=== PATIENT | female | born 1980 | race African-American/Black ===

== ENCOUNTER 2016-07-31 11:49 | Observation (INO) | payer MEDICAID, OTHER ==
[2016-07-31] VITALS (7 sets, daily range): BP systolic 109–143; BP diastolic 8–82; PULSE 80–119; RESP 16–20; TEMP 98–98.2; O2SAT 95–100
[~2016-07-31] VITALS: Ht 167.6 cm; Wt 72.5 kg
--- NOTE | 2016-07-31 12:18 | PD ---
HPI Chief Complaint: Chest Pain Time Seen by Provider: 12:18 Travel History International Travel<30 days: No Contact w/Intl Traveler<30days: No Traveled to known affect area: No History of Present Illness HPI 35-year-old female presents to the emergency department for evaluation of chest pain that has been intermittent for the past 3 days. She states are sharp and pressure in her ears in her midsternal chest. She denies any radiation of pain to me. She states the last time she had it was yesterday morning and lasted approximately 5 minutes. She states it did resolve on their own. She states she was doing dishes when the chest pain occurred. She denies any history of cardiac problems. She does report a history type 2 diabetes and states that she was on insulin approximately 2 years ago, but has not taken in approximately 2 years due to lack of insurance. She states that she does not check her blood sugar. Patient denies any fevers or chills. No cough or congestion. No recent surgeries or travel. No leg edema. No hemoptysis. Patient denies any chest pain at this time. Patient does report a history of PA her mother and father. She states that her father had PA at a younger age, but is not sure how old he was. Patient denies any chance of . She states her last menstrual cycle was 2 weeks ago. PFSH Past Medical History ?: Not LMP: 07/19/16 Social History Alcohol Use: No Tobacco Use: No Substance Use: No Allergies-Medications (Allergen,Severity, Reaction): Coded Allergies: No Known Allergies (Unverified , 07/31/16) Reported Meds & Prescriptions Reported Meds & Active Scripts Active No Active Prescriptions or Reported Medications Review of Systems Except as stated in HPI: all other systems reviewed are Neg Physical Exam Narrative GENERAL: Well-nourished, well-developed female patient, ambulatory. Afebrile. SKIN: Focused skin assessment warm/dry. HEAD: Normocephalic. Atraumatic. EYES: No scleral icterus. No injection or drainage. NECK: Supple, trachea midline. No JVD or lymphadenopathy. CARDIOVASCULAR: Regular rate and rhythm without murmurs, gallops, or rubs. Bilateral radial and pedal pulses equal, 2+. RESPIRATORY: Breath sounds equal bilaterally. No accessory muscle use. Lungs sounds are clear to auscultation. GASTROINTESTINAL: Abdomen soft, non-tender, nondistended. MUSCULOSKELETAL: No cyanosis, or edema. No reproducible chest pain. BACK: Nontender without obvious deformity. No CVA tenderness. Data Data Last Documented VS Vital Signs Date Time Temp Pulse Resp B/P Pulse Ox O2 Delivery O2 Flow Rate FiO2 07/31/16 12:56 95 16 123/77 95 Room Air 07/31/16 11:51 98.2 Orders Electrocardiogram (07/31/16 ) Basic Metabolic Panel (Bmp) (07/31/16 12:17) Ckmb (Isoenzyme) Profile (07/31/16 12:17) Complete Blood Count With Diff (07/31/16 12:17) Magnesium (Mg) (07/31/16 12:17) Troponin I (07/31/16 12:17) Chest, Single Ap (07/31/16 12:17) Ecg Monitoring (07/31/16 12:17) Bilateral Bp Monitoring (07/31/16 12:17) Iv Access Insert/Monitor (07/31/16 12:17) Oximetry (07/31/16 12:17) Oxygen Administration (07/31/16 12:17) Aspirin Chew (Aspirin Chew) (07/31/16 12:30) Sodium Chloride 0.9% Flush (Ns Flush) (07/31/16 12:30) Sodium Chlor 0.9% 1000 Ml Inj (Ns 1000 M (07/31/16 13:45) Insulin Human Regular Inj (Novolin R Inj (07/31/16 13:45) Labs Laboratory Tests Test 07/31/16 12:50 White Blood Count 4.9 TH/MM3 Red Blood Count 4.24 MIL/MM3 Hemoglobin 12.4 GM/DL Hematocrit 37.5 % Mean Corpuscular Volume 88.5 FL Mean Corpuscular Hemoglobin 29.3 PG Mean Corpuscular Hemoglobin 33.1 % Concent Red Cell Distribution Width 15.3 % Platelet Count 259 TH/MM3 Mean Platelet Volume 9.3 FL Neutrophils (%) (Auto) 59.3 % Lymphocytes (%) (Auto) 32.1 % Monocytes (%) (Auto) 6.5 % Eosinophils (%) (Auto) 1.6 % Basophils (%) (Auto) 0.5 % Neutrophils # (Auto) 2.9 TH/MM3 Lymphocytes # (Auto) 1.6 TH/MM3 Monocytes # (Auto) 0.3 TH/MM3 Eosinophils # (Auto) 0.1 TH/MM3 Basophils # (Auto) 0.0 TH/MM3 CBC Comment DIFF FINAL Differential Comment Sodium Level 133 MEQ/L Potassium Level 4.3 MEQ/L Chloride Level 98 MEQ/L Carbon Dioxide Level 26.2 MEQ/L Anion Gap 9 MEQ/L Blood Urea Nitrogen 6 MG/DL Creatinine 0.81 MG/DL Estimat Glomerular Filtration 97 ML/MIN Rate Random Glucose 423 MG/DL Calcium Level 8.9 MG/DL Magnesium Level 2.1 MG/DL Total Creatine Kinase 75 U/L Troponin I LESS THAN 0.02 NG/ML MDM Medical Decision Making Medical Screen Exam Complete: Yes Emergency Medical Condition: Yes Medical Record Reviewed: Yes Interpretation(s) Last Impressions Chest X-Ray 07/31/16 1217 Signed Impressions: Service Date/Time: Tuesday, July 31, 2016 12:17 - CONCLUSION: No acute disease. Luis Antonio Jerry MD FACR Differential Diagnosis Chest wall pain versus pleurisy versus ACS Narrative Course 35-year-old female presents to the emergency department for evaluation of intermittent chest pain for 3 days. She is currently pain-free at this time. EKG, CBC, BMP, CK, troponin, magnesium are ordered and pending. Chest x-ray is ordered and pending. Patient is given ASA 162 mg PO. EKG shows sinus rhythm, heart rate 100, no acute ST changes. CBC is unremarkable. BMP shows critical elevated glucose of 423, anion gap is normal at 9, carbon dioxide is normal at 26.2, no evidence of DKA. CK is 75. Troponin is less than 0.02. Magnesium is 2.1. Chest x-ray shows no acute disease. Patient is given normal saline 1 L IV bolus and regular insulin 4 units IV. The patient will be admitted for 23 observation for chest pain, rule out PA. The patient agrees with this plan. [facility] is paged for admission. Dr. Buchanan accepted admission. 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
[2016-07-31] MEDS ORDERED: SODIUM CHLORIDE 0.9% FLUSH 10 ML FLUSH IVF PRN (12:30)
[2016-07-31] MEDS ORDERED: ASPIRIN 81 MG CHEW TAB PO ONE (12:30)
--- NOTE | 2016-07-31 12:51 | RADRPT ---
EXAM DATE/TIME: 07/31/2016 12:17 [facility] COMPARISON: No previous studies available for comparison. INDICATIONS : Chest pain. MEDICAL HISTORY : None. SURGICAL HISTORY : None. ENCOUNTER: Initial ACUITY: 1 day PAIN SCORE: 5/10 LOCATION: Bilateral chest FINDINGS: A single view of the chest demonstrates the lungs to be symmetrically aerated without evidence of mas s, infiltrate or effusion. The cardiomediastinal contours are unremarkable. Scoliosis, convex to th e right is noted. CONCLUSION: No acute disease. Luis Antonio Jerry MD FACR on July 31, 2016 at 12:49 Board Certified Radiologist. This report was verified electronically.
[2016-07-31 13:03] LABS: AUTOMATED NEUTROPHIL # 2.9 TH/MM3 (1.8-7.7); BASOPHIL % 0.5 % (0.0-2.0); EOSINOPHIL # 0.1 TH/MM3 (0-0.4); EOSINOPHIL % 1.6 % (0.0-4.0); HEMATOCRIT 37.5 % (35.0-46.0); HEMO FLAGS DIFF FINAL; LYMPH % 32.1 % (9.0-44.0); LYMPHOCYTE # 1.6 TH/MM3 (1.0-4.8); MEAN CELL VOLUME 88.5 FL (80.0-100.0); MEAN CORPUSCULAR HEMOGLOBIN 29.3 PG (27.0-34.0); MEAN CORPUSCULAR HGB CONC 33.1 % (32.0-36.0); MONO % 6.5 % (0.0-8.0); NEUT % 59.3 % (16.0-70.0); PLATELET COUNT 259 TH/MM3 (150-450); RED BLOOD COUNT 4.24 MIL/MM3 (4.00-5.30); RED CELL DISTRIBUTION WIDTH 15.3 % (11.6-17.2); WHITE BLOOD COUNT 4.9 TH/MM3 (4.0-11.0)
[2016-07-31 13:35] LABS: ANION GAP 9 MEQ/L (5-15); BICARBONATE 26.2 MEQ/L (21.0-32.0); BLOOD UREA NITROGEN 6 MG/DL (7-18); CHLORIDE 98 MEQ/L (98-107); GLOMERULAR FILTRATION RATE 97 ML/MIN (>89); MAGNESIUM 2.1 MG/DL (1.5-2.5); POTASSIUM 4.3 MEQ/L (3.5-5.1); SODIUM (NA) 133 MEQ/L (136-145)
[2016-07-31 13:40] LABS: CREATINE KINASE 75 U/L (26-192)
[2016-07-31] MEDS ORDERED: INSULIN HUMAN REGULAR 1,000 UNITS/10 ML VIAL IV PUSH ONE (13:45)
[2016-07-31] MEDS ORDERED: SODIUM CHLOR 0.9% 1000 ML INJ 1,000 ML IV ONE (13:45)
[2016-07-31] MEDS ORDERED: DEXTROSE 50% IN WATER 50 ML VIAL(D50) IV PUSH PRN (14:15)
[2016-07-31] MEDS ORDERED: GLUCAGON 1 MG/ML VIAL OTHER PRN (14:15)
[2016-07-31] MEDS ORDERED: ACETAMINOPHEN/HYDROcodone 325 MG/5 MG TAB PO PRN (14:30)
[2016-07-31] MEDS ORDERED: ACETAMINOPHEN 325 MG TAB PO PRN (14:30)
[2016-07-31] MEDS ORDERED: ONDANSETRON HCL 4 MG/2 ML VIAL IV PUSH PRN (14:30)
--- NOTE | 2016-07-31 14:31 | HHI.HP ---
[facility] No Primary Care Physician Admission Diagnosis chest pain, uncontrolled type 2 diabetes Diagnoses: (1) Chest pain Diagnosis: Principal (2) Diabetes mellitus Chief Complaint: chest pain Travel History International Travel<30 Days: No Contact w/Intl Traveler <30 Da: No Traveled to Known Affected Are: No History of Present Illness patient is a 35 y/o female with history of diabetes mellitus, previously was on insulin and not on any hypoglycemic agents since three years ago, who presented to ER with chest pain. pain is midsternal . she says that the pain started three days ago. she describes it as sharp and ' burning' type. had some jaw pain. pain is worse with exertion. pain was associated with some sob, dizziness and nausea. she was pain free at the time of evaluation. Review of Systems Constitutional: COMPLAINS OF: Dizziness, DENIES: Fever, Weight loss, Chills, Night Sweats Eyes: DENIES: Blurred vision, Diplopia, Vision loss, Double Vision Ears, nose, mouth, throat: DENIES: Tinnitus, Vertigo, Throat pain, Epistaxis Respiratory: COMPLAINS OF: Shortness of breath, DENIES: Apneas, Cough, Snoring , Wheezing, Hemoptysis, Sputum production Cardiovascular: COMPLAINS OF: Chest pain, DENIES: Palpitations, Syncope, Dyspnea on Exertion, PND, Lower Extremity Edema, Orthopnea, Claudication Gastrointestinal: COMPLAINS OF: Nausea, DENIES: Abdominal pain, Black stools, Bloody stools, Constipation, Vomiting, Difficulty Swallowing, Anorexia Genitourinary: DENIES: Urinary frequency, Urgency, Hematuria, Dysuria Musculoskeletal: DENIES: Joint pain, Muscle aches, Stiffness, Joint Swelling Integumentary: DENIES: Rash Neurologic: DENIES: Abnormal gait, Headache, Localized weakness, Paresthesias, Seizures, Speech Problems, Tremor, Poor Balance Psychiatric: DENIES: Anxiety, Confusion, Mood changes, Depression, Hallucinations, Agitation, Suicidal Ideation, Homicidal Ideation, Delusions Past Family Social History Past Medical History diabetes mellitus Reported Medications none - however was on insulin three years ago. Allergies: Coded Allergies: No Known Allergies (Unverified , 07/31/16) Active Ordered Medications Current Medications Aspirin (Aspirin Chew) 162 mg ONCE ONCE PO Last administered on 07/31/16 12:57 ; Start 07/31/16 at 12:30; Stop 07/31/16 at 12:31; Status DC Sodium Chloride 2 ml 2 ml UNSCH PRN IVF FLUSH AFTER USING IV ACCESS; Start 07/31 at 12:30 Sodium Chloride (NS 1000 ml Inj) 1,000 ml @ 999 mls/hr BOLUS ONCE IV Last administered on 07/31/16 13:52; Start 07/31/16 at 13:45; Stop 07/31/16 at 14:45 Insulin Human Regular (NovoLIN R INJ) 4 units ONCE ONCE IV PUSH Last administered on 07/31/16 13:53; Start 07/31/16 at 13:45; Stop 07/31/16 at 13:46; Status DC Dextrose (D50w (Vial) Inj) 25 ml UNSCH PRN IV PUSH HYPOGLYCEMIA-SEE COMMENTS; Start 07/31/16 at 14:15 Glucagon (Glucagon Inj) 1 mg UNSCH PRN OTHER HYPOGLYCEMIA-SEE COMMENTS; Start 07/31/16 at 14:15 Insulin Aspart 1 1 ACHS SLIDING SCALE SQ ; Start 07/31/16 at 16:00 Sodium Chloride (NS 1000 ml Inj) 1,000 ml @ 100 mls/hr Q10H IV ; Start 07/31/16 at 14:15 Family History heart attack in father at his 30's and in her mother at her 60's. Social History no smoking or drinking. Physical Exam Vital Signs Vital Signs Date Time Temp Pulse Resp B/P Pulse Ox O2 Delivery O2 Flow Rate FiO2 07/31/16 12:56 95 16 123/77 95 Room Air 07/31/16 12:52 20 95 Room Air 07/31/16 11:51 98.2 119 16 143/82 99 Physical Exam GENERAL: This is a well-nourished, well-developed patient, in no apparent distress. SKIN: No rashes, ecchymoses or lesions. Cool and dry. HEAD: Atraumatic. Normocephalic. No temporal or scalp tenderness. EYES: Pupils equal round and reactive. Extraocular motions intact. No scleral icterus. No injection or drainage. ENT: Nose without bleeding, purulent drainage or septal hematoma. Throat without erythema, tonsillar hypertrophy or exudate. Uvula midline. Airway patent. NECK: Trachea midline. No JVD or lymphadenopathy. Supple, nontender, no meningeal signs. CARDIOVASCULAR: Regular rate and rhythm without murmurs, gallops, or rubs. RESPIRATORY: Clear to auscultation. Breath sounds equal bilaterally. No wheezes , rales, or rhonchi. GASTROINTESTINAL: Abdomen soft, non-tender, nondistended. No hepato-splenomegaly , or palpable masses. No guarding. MUSCULOSKELETAL: Extremities without clubbing, cyanosis, or edema. No joint tenderness, effusion, or edema noted. No calf tenderness. Negative Homans sign bilaterally. NEUROLOGICAL: Awake and alert. Cranial nerves II through XII intact. Motor and sensory grossly within normal limits. Five out of 5 muscle strength in all muscle groups. Normal speech. Laboratory Laboratory Tests Test 07/31/16 12:50 White Blood Count 4.9 Red Blood Count 4.24 Hemoglobin 12.4 Hematocrit 37.5 Mean Corpuscular Volume 88.5 Mean Corpuscular Hemoglobin 29.3 Mean Corpuscular Hemoglobin 33.1 Concent Red Cell Distribution Width 15.3 Platelet Count 259 Mean Platelet Volume 9.3 Neutrophils (%) (Auto) 59.3 Lymphocytes (%) (Auto) 32.1 Monocytes (%) (Auto) 6.5 Eosinophils (%) (Auto) 1.6 Basophils (%) (Auto) 0.5 Neutrophils # (Auto) 2.9 Lymphocytes # (Auto) 1.6 Monocytes # (Auto) 0.3 Eosinophils # (Auto) 0.1 Basophils # (Auto) 0.0 CBC Comment DIFF FINAL Differential Comment Sodium Level 133 Potassium Level 4.3 Chloride Level 98 Carbon Dioxide Level 26.2 Anion Gap 9 Blood Urea Nitrogen 6 Creatinine 0.81 Estimat Glomerular Filtration 97 Rate Random Glucose 423 Calcium Level 8.9 Magnesium Level 2.1 Total Creatine Kinase 75 Troponin I LESS THAN 0.02 Result Diagram: 07/31/16 1250 07/31/16 1250 Imaging Last Impressions Chest X-Ray 07/31/16 1217 Signed Impressions: Service Date/Time: Sunday, July 31, 2016 12:17 - CONCLUSION: No acute disease. Luis Antonio Jerry MD FACR EKG; sinus tachycardia with no acute ST-T changes Assessment and Plan Assessment and Plan A/P - chest pain continue aspirin- will check the serial cardiac enzymes; stress test ( exercise stress test ) tomorrow if ACS ruled out. -diabetes mellitus; non-compliant with hypoglycemic agents ( was on insulin in the past ) continue IV fluid- accu-check with SSI- check A1c Discussed Condition With ER and the patient. Problem Qualifiers (1) Chest pain: Qualified Code: R07.9 - Chest pain, unspecified type (2) Diabetes mellitus: Qualified Code: E11.9 - Type 2 diabetes mellitus without complication, unspecified fci insulin use status Abbie Mcleod MD Jul 31, 2016 14:31
--- NOTE | 2016-07-31 14:54 | PD ---
Physical Exam Date Seen by Provider: Jul 31, 2016 Time Seen by Provider: 13:00 Narrative I, Dr. Gray, have reviewed the advance practice practitioner's documentation and am in agreement, met with the patient face to face, made the diagnosis, and the medical decision making was done by me. *My assessment and Findings: Patient seen and evaluated with nurse practitioner in the ER, please see mid-level note for further information. Here with chest pains which is now resolved. EKG shows sinus tachycardia rate of 100 bpm, no ST elevation or depression, and no arrhythmias. No significant T-wave inversions. Laboratory Tests Test 07/31/16 12:50 Sodium Level 133 MEQ/L (136-145) Blood Urea Nitrogen 6 MG/DL (7-18) Random Glucose 423 MG/DL (74-106) Troponin I LESS THAN 0.02 NG/ML (0.02-0.05) Last 24 hours Impressions Chest X-Ray 07/31/16 1217 Signed Impressions: Service Date/Time: Tuesday, July 31, 2016 12:17 - CONCLUSION: No acute disease. Luis Antonio Jerry MD FACR Initial EKG and cardiac enzymes are negative. At this point, my plan would be to admit the patient for further evaluation. Patient has history of cardiac disease, father had NE at age 35. Lab work also shows significant hyperglycemia , patient is diabetic and not taking insulin. Insulin was given in the ER IV. Case is discussed with hospitalist for admission. Data Data Last Documented VS Vital Signs Date Time Temp Pulse Resp B/P Pulse Ox O2 Delivery O2 Flow Rate FiO2 07/31/16 12:56 95 16 123/77 95 Room Air 07/31/16 11:51 98.2 Orders Electrocardiogram (07/31/16 ) Basic Metabolic Panel (Bmp) (07/31/16 12:17) Ckmb (Isoenzyme) Profile (07/31/16 12:17) Complete Blood Count With Diff (07/31/16 12:17) Magnesium (Mg) (07/31/16 12:17) Troponin I (07/31/16 12:17) Chest, Single Ap (07/31/16 12:17) Ecg Monitoring (07/31/16 12:17) Bilateral Bp Monitoring (07/31/16 12:17) Iv Access Insert/Monitor (07/31/16 12:17) Oximetry (07/31/16 12:17) Oxygen Administration (07/31/16 12:17) Aspirin Chew (Aspirin Chew) (07/31/16 12:30) Sodium Chloride 0.9% Flush (Ns Flush) (07/31/16 12:30) Sodium Chlor 0.9% 1000 Ml Inj (Ns 1000 M (07/31/16 13:45) Insulin Human Regular Inj (Novolin R Inj (07/31/16 13:45) Admit Order (Ed Use Only) (07/31/16 14:08) Vital Signs (Adult) NILA.Q4H (07/31/16 14:06) Troponin I (07/31/16 19:00) Troponin I (08/01/16 01:00) ^ Blood Glucose Goal (Criteria (07/31/16 14:06) ^ Hypoglycemia 51 - 69 Mg/Dl (07/31/16 14:06) ^ Hypoglycemia 50 Mg/Dl Or < (07/31/16 14:06) ^ Notify Dr: Other (07/31/16 14:06) Dextrose 50% In Jair (Vial) Inj (D50w (Vi (07/31/16 14:15) Glucagon Inj (Glucagon Inj) (07/31/16 14:15) Insulin Aspart Supplemtl Scale (Novolog (07/31/16 16:00) Sodium Chlor 0.9% 1000 Ml Inj (Ns 1000 M (07/31/16 14:15) Hemoglobin (Hgb) A1c (07/31/16 14:06) Labs Laboratory Tests Test 07/31/16 12:50 White Blood Count 4.9 TH/MM3 Red Blood Count 4.24 MIL/MM3 Hemoglobin 12.4 GM/DL Hematocrit 37.5 % Mean Corpuscular Volume 88.5 FL Mean Corpuscular Hemoglobin 29.3 PG Mean Corpuscular Hemoglobin 33.1 % Concent Red Cell Distribution Width 15.3 % Platelet Count 259 TH/MM3 Mean Platelet Volume 9.3 FL Neutrophils (%) (Auto) 59.3 % Lymphocytes (%) (Auto) 32.1 % Monocytes (%) (Auto) 6.5 % Eosinophils (%) (Auto) 1.6 % Basophils (%) (Auto) 0.5 % Neutrophils # (Auto) 2.9 TH/MM3 Lymphocytes # (Auto) 1.6 TH/MM3 Monocytes # (Auto) 0.3 TH/MM3 Eosinophils # (Auto) 0.1 TH/MM3 Basophils # (Auto) 0.0 TH/MM3 CBC Comment DIFF FINAL Differential Comment Sodium Level 133 MEQ/L Potassium Level 4.3 MEQ/L Chloride Level 98 MEQ/L Carbon Dioxide Level 26.2 MEQ/L Anion Gap 9 MEQ/L Blood Urea Nitrogen 6 MG/DL Creatinine 0.81 MG/DL Estimat Glomerular Filtration 97 ML/MIN Rate Random Glucose 423 MG/DL Calcium Level 8.9 MG/DL Magnesium Level 2.1 MG/DL Total Creatine Kinase 75 U/L Troponin I LESS THAN 0.02 NG/ML MDM Medical Record Reviewed: Yes Supervised Visit with MASTER: Yes Diagnosis Primary Impression: Chest pain Qualified Code: R07.9 - Chest pain, unspecified type Additional Impression: Diabetes mellitus Qualified Code: E11.9 - Type 2 diabetes mellitus without complication, 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
[2016-07-31] MEDS: SODIUM CHLOR 0.9% 1000 ML INJ 1,000 ML IV SCH ×2 (15:16→22:09)
[2016-07-31 16:07] LABS: BETA HCG QUANT LESS THAN 1 MIU/ML (0-5)
[2016-07-31] MEDS: INSULIN ASPART SUPPLEMENTAL SCALE SQ SCH ×2 (16:37→22:08)
--- NOTE | 2016-07-31 23:48 | EKG ---
Date Performed: 07/31/2016 Time Performed: 18:48:09 PTAGE: 35 years EKG: Sinus rhythm NORMAL ECG PREVIOUS TRACING : 07/31/2016 15.06 DOCTOR: Marlen Hanson Interpretating Date/Time 07/31/2016 23:46:57
--- NOTE | 2016-07-31 23:58 | EKG ---
Date Performed: 07/31/2016 Time Performed: 15:06:48 PTAGE: 35 years EKG: Sinus rhythm NORMAL ECG PREVIOUS TRACING : 07/31/2016 12.01 DOCTOR: Marlen Hanson Interpretating Date/Time 07/31/2016 23:56:41
--- NOTE | 2016-08-01 00:06 | EKG ---
Date Performed: 07/31/2016 Time Performed: 12:01:18 PTAGE: 35 years EKG: SINUS TACHYCARDIA ABNORMAL RHYTHM ECG NO PREVIOUS TRACING DOCTOR: Marlen Hanson Interpretating Date/Time 08/01/2016 00:04:14
[2016-08-01 03:50] VITALS: BP 100/63; PULSE 71; RESP 20; TEMP 97.6; O2SAT 100
[2016-08-01] MEDS: INSULIN ASPART SUPPLEMENTAL SCALE SQ SCH ×3 (06:11→16:53)
[2016-08-01 07:19] VITALS: BP 116/72; PULSE 74; RESP 18; TEMP 97.8; O2SAT 100
[2016-08-01] MEDS ORDERED: LANTUS2P SQ (07:40)
--- NOTE | 2016-08-01 07:46 | HHI.PR ---
Subjective Remarks resting comfortably with no distress. chest pain has resolved. no new complaints. Objective Vitals Vital Signs Date Time Temp Pulse Resp B/P Pulse Ox O2 Delivery O2 Flow Rate FiO2 08/01/16 07:19 97.8 74 18 116/72 100 08/01/16 03:50 97.6 71 20 100/63 100 07/31/16 23:44 98.0 80 20 130/74 100 07/31/16 19:44 98.1 85 20 128/61 98 07/31/16 16:30 98.0 86 20 109/79 96 07/31/16 15:16 83 16 119/78 95 Room Air 07/31/16 12:56 95 16 123/77 95 Room Air 07/31/16 12:52 20 95 Room Air 07/31/16 11:51 98.2 119 16 143/82 99 I/O 07/31/16 07/31/16 07/31/16 08/01/16 08/01/16 08/01/16 07:00 15:00 23:00 07:00 15:00 23:00 Intake Total 1340 ml Output Total 1 ml Balance 1339 ml Intake Oral 240 ml IV Total 1100 ml Output Urine Total 1 ml # Voids 1 Result Diagram: 07/31/16 1250 07/31/16 1250 Imaging Last Impressions Chest X-Ray 07/31/16 1217 Signed Impressions: Service Date/Time: Sunday, July 31, 2016 12:17 - CONCLUSION: No acute disease. Luis Antonio Jerry MD FACR Objective Remarks GENERAL: This is a well-nourished, well-developed patient, in no apparent distress. CARDIOVASCULAR: Regular rate and regular rhythm without murmurs, gallops, or rubs. RESPIRATORY: Clear to auscultation. Breath sounds equal bilaterally. No wheezes , rales, or rhonchi. GASTROINTESTINAL: Abdomen soft, non-tender, nondistended. Normal, active bowel sounds MUSCULOSKELETAL: Extremities without clubbing, cyanosis, or edema. NEURO: Alert & Oriented x4 to person, place, time, situation. Moves all ext x4 Procedures none Medications and IVs Current Medications Aspirin (Aspirin Chew) 162 mg ONCE ONCE PO Last administered on 07/31/16t 12:57 ; Start 07/31/16 at 12:30; Stop 07/31/16 at 12:31; Status DC Sodium Chloride 2 ml 2 ml UNSCH PRN IVF FLUSH AFTER USING IV ACCESS; Start 07/31 at 12:30 Sodium Chloride (NS 1000 ml Inj) 1,000 ml @ 999 mls/hr BOLUS ONCE IV Last administered on 07/31/16 13:52; Start 07/31/16 at 13:45; Stop 07/31/16 at 14:45; Status DC Insulin Human Regular (NovoLIN R INJ) 4 units ONCE ONCE IV PUSH Last administered on 07/31/16 13:53; Start 07/31/16 at 13:45; Stop 07/31/16 at 13:46; Status DC Dextrose (D50w (Vial) Inj) 25 ml UNSCH PRN IV PUSH HYPOGLYCEMIA-SEE COMMENTS; Start 07/31/16 at 14:15 Glucagon (Glucagon Inj) 1 mg UNSCH PRN OTHER HYPOGLYCEMIA-SEE COMMENTS; Start 07/31/16 at 14:15 Insulin Aspart 1 1 ACHS SLIDING SCALE SQ Last administered on 08/01/16 06:11; Start 07/31/16 at 16:00 Sodium Chloride (NS 1000 ml Inj) 1,000 ml @ 100 mls/hr Q10H IV Last administered on 07/31/16 22:09; Start 07/31/16 at 14:15 Aspirin (Ecotrin Ec) 162 mg DAILY PO ; Start 08/01/16 at 09:00 Acetaminophen (Tylenol) 650 mg Q4H PRN PO FEVER/ PAIN < 5; Start 07/31/16 at 14: 30 Acetaminophen/ Hydrocodone Bitart ([place] 5-325 Mg) 1 tab Q6H PRN PO PAIN > 5; Start 07/31/16 at 14:30 Ondansetron HCl (Zofran Inj) 4 mg Q8HR PRN IV PUSH NAUSEA; Start 07/31/16 at 14: 30 A/P Assessment and Plan A/P - chest pain- has resolved received aspirin-serial enzymes and EKG's negative- stress test today. -diabetes mellitus; non-compliant with hypoglycemic agents ( was on insulin in the past ) blood sugar levels better today- A1c pending- will restart her on insulin upon discharge. Discharge Planning case management consult for dc planning; outpatient follow-ups. possible dc home later today - pending the result of stress test. see med list. f/u with pcp upon discharge. d/w the patient. Abbie Mcleod MD Aug 01, 2016 07:46
--- NOTE | 2016-08-01 07:46 | HHI.DCPOC ---
Discharge Care Plan Diagnosis: (1) Chest pain Your Health Problems Are: Chest Pain Goals to Promote Your Health * To prevent worsening of your condition and complications * To maintain your health at the optimal level Directions to Meet Your Goals Take your medications as prescribed Follow your dietary instruction Follow activity as directed Keep your appointments as scheduled Take your immunizations and boosters as scheduled If your symptoms worsen call your PCP, if no PCP go to Urgent Care Center or Emergency Room Smoking is Dangerous to Your Health. Avoid second hand smoke Call the 24-hour hour crisis hotline for domestic abuse at Abbie Mcleod MD Aug 01, 2016 07:46
--- NOTE | 2016-08-01 07:47 | HHI.DS ---
Discharge Summary Admission Date Jul 31, 2016 at 14:09 Discharge Date: Aug 01, 2016 Admitting Diagnosis chest pain, uncontrolled type 2 diabetes (1) Chest pain ICD Code: R07.9 Diagnosis: Principal (2) Diabetes mellitus ICD Code: E11.9 Diagnosis: Secondary Procedures none Brief History - From Admission patient is a 35 y/o female with history of diabetes mellitus, previously was on insulin and not on any hypoglycemic agents since three years ago, who presented to ER with chest pain. pain is midsternal . she says that the pain started three days ago. she describes it as sharp and ' burning' type. had some jaw pain. pain is worse with exertion. pain was associated with some sob, dizziness and nausea. she was pain free at the time of evaluation. CBC/BMP: 07/31/16 1250 07/31/16 1250 Significant Findings Laboratory Tests Test 07/31/16 07/31/16 08/01/16 12:50 18:53 01:01 Sodium Level 133 MEQ/L (136-145) Blood Urea Nitrogen 6 MG/DL (7-18) Random Glucose 423 MG/DL (74-106) Troponin I LESS THAN 0.02 LESS THAN 0.02 LESS THAN 0.02 NG/ML NG/ML NG/ML (0.02-0.05) (0.02-0.05) (0.02-0.05) Imaging Last Impressions Chest X-Ray 07/31/16 1217 Signed Impressions: Service Date/Time: Sunday, July 31, 2016 12:17 - CONCLUSION: No acute disease. Luis Antonio Jerry MD FACR PE at Discharge GENERAL: This is a well-nourished, well-developed patient, in no apparent distress. CARDIOVASCULAR: Regular rate and regular rhythm without murmurs, gallops, or rubs. RESPIRATORY: Clear to auscultation. Breath sounds equal bilaterally. No wheezes , rales, or rhonchi. GASTROINTESTINAL: Abdomen soft, non-tender, nondistended. Normal, active bowel sounds MUSCULOSKELETAL: Extremities without clubbing, cyanosis, or edema. NEURO: Alert & Oriented x4 to person, place, time, situation. Moves all ext x4 Hospital Course - chest pain- has resolved received aspirin-serial enzymes and EKG's negative- stress test today. -diabetes mellitus; non-compliant with hypoglycemic agents ( was on insulin in the past ) blood sugar levels better today- A1c pending- will restart her on insulin upon discharge. Pt Condition on Discharge: Good Discharge Disposition: Discharge Home Discharge Time: <= 30 minutes Discharge Instructions DIET: Follow Instructions for: Diabetic Diet Activities you can perform: Regular-No Restrictions Follow up Referrals: PCP Follow-up New Medications: Insulin Glargine Inj (Lantus Inj) 1,000 Unit/10 Ml Vial 10 UNITS SQ HS Blood Sugar Management Days 30 Ref 0 VIAL Abbie Mcleod MD Aug 01, 2016 07:47
[2016-08-01] MEDS: SODIUM CHLOR 0.9% 1000 ML INJ 1,000 ML IV SCH (08:43)
[2016-08-01] MEDS ORDERED: ASPIRIN EC 81 MG TABEC PO SCH (09:00)
[2016-08-01 10:49] VITALS: BP 129/83; PULSE 76; RESP 20; TEMP 97.6; O2SAT 100
[2016-08-01 11:28] LABS: HEMOGLOBIN A1a 1.6 %; HEMOGLOBIN A1b 1.1 %; HEMOGLOBIN Ao 74.5 %; HEMOGLOBIN F 1.9 %; HEMOGLOBIN LA1C 2.6 %; HEMOGLOBIN P3 4.8 %
[2016-08-01] MEDS ORDERED: REGADENOSON INJ 0.4 MG/5 ML SYR ONE (12:04)
--- NOTE | 2016-08-01 13:46 | RADRPT ---
EXAM DATE/TIME: 08/01/2016 11:57 [facility] COMPARISON: No previous studies available for comparison. INDICATIONS : Midsternal chest pain. Angina. Abnormal EKG. DOSE: 26.1 mCi Tc99m Myoview at stress. 8.8 mCi Tc99m Myoview at rest. 0.4 mg Lexiscan STRESS SYMPTOMS: Dyspnea. EJECTION FRACTION: 58% MEDICAL HISTORY : Diabetes mellitus type 2. SURGICAL HISTORY : None. ENCOUNTER: Initial ACUITY: 3 days PAIN SCALE: 7/10 LOCATION: Midsternal chest TECHNIQUE: The patient underwent pharmacologic stress with infusion of prescribed dose. Continuous ECG tracing was monitored during stress. Gated SPECT imaging was performed after stress and conventional SPECT i maging was performed at rest. The examination was performed on a SPECT/CT scanner, both attenuation and non-corrected datasets were reviewed. FINDINGS: The best perfused myocardium is the lateral wall. Moderate gut activity does obscure the inferior wal l. There is no septal redistribution of activity in the septum is diminished compared to the rest of the myocardium. There is minimal hypokinesis of the septal wall. The ventricular cavity is mildly dilated the ejection fraction of 58%. CONCLUSION: Negative for stress-induced ischemia however the perfusion in the septum to depressed. Correlation i s suggested.. RISK CATEGORY: Low, however perfusion of the septum does not appear normal. Luis Antonio Jerry MD FACR on August 01, 2016 at 13:40 Board Certified Radiologist. This report was verified electronically.
[2016-08-01 15:18] VITALS: BP 119/75; PULSE 74; RESP 20; TEMP 97.9; O2SAT 100
[2016-08-01] MEDS ORDERED: INSULIN DETEMIR 100 UNITS/ML VIAL SQ SCH (21:00)
--- NOTE | 2016-08-01 21:00 | EKG ---
Date Performed: 08/01/2016 Time Performed: 01:04:35 PTAGE: 35 years EKG: Sinus rhythm NORMAL ECG PREVIOUS TRACING : 07/31/2016 18.48 DOCTOR: Marlen Hanson Interpretating Date/Time 08/01/2016 21:00:00
--- NOTE | 2016-08-02 09:06 | MB ---
cc: FER CLARK MD, HANSCY M.D. DATE OF CONSULTATION: 08/01/2016 REASON FOR CONSULTATION Chest pain. HISTORY OF PRESENT ILLNESS Mrs. Shah is a 35-year-old -[place] female with a history of diabetes mellitus, very active, admitted through the emergency room due to chest discomfort. She referred some discomfort in the past couple of weeks, not associated with exercise. During hospitalization a nuclear stress study was performed that indicated no ischemia with a normal ejection fraction. I was consulted for further evaluation and management. The chart was reviewed. The patient was evaluated. ALLERGIES None. SOCIAL HISTORY Negative for smoking. Drinks maybe once a month. FAMILY HISTORY Noncontributory to her current medical condition. MEDICATIONS 1. Aspirin. 2. Insulin. 3. Tylenol. REVIEW OF SYSTEMS She refers no chest pain, no chest discomfort, no vomiting, no fever. PHYSICAL EXAMINATION GENERAL: Alert, fully oriented. VITAL SIGNS: Blood pressure 119/75, pulse 74, respiratory rate 20. LUNGS: Ventilated. CARDIOVASCULAR: S1, S2, regular, no gallop. ABDOMEN: Soft. No mass. No bruit. EXTREMITIES: No edema. ELECTROCARDIOGRAM Sinus rhythm. No significant ST changes. LABORATORY Hemoglobin 12.4, white blood cell count 4.9. Creatinine is 0.81. Potassium 4.3. Troponin less than 0.02. ASSESSMENT AND RECOMMENDATION Mrs. Shah has no chest pain, no shortness of breath. Nuclear stress study is negative. Blood pressure is adequate. At this point there is no need for further cardiovascular evaluation. She can be discharged home when okay by the managing team. Her blood sugar needs to be controlled. Case extensively discussed with her. I will be available on a p.r.n. basis. Marlen Hanson MD HS/BT /5:05 PM /8:58 AM
[2016-09-28] MEDS ORDERED: LANTUS2P SQ (11:47)
[2016-09-28] MEDS ORDERED: FINGMIS SQ (11:47)
[2016-09-28] MEDS ORDERED: ALCO1PAD (11:47)
[2016-09-28] MEDS ORDERED: BLOOD GLUCOSE T1 TES (11:47)
[2016-09-28] MEDS ORDERED: BLOOD GLUCOSE M1 KIT (11:47)
[2016-09-28] MEDS ORDERED: INSULIN SYRINGE1 M10 SQ (11:47)
[2016-09-28] MEDS ORDERED: DIFL150T PO (11:53)
== END 2016-08-01 20:19 | disposition home or self-care (01) ==
LOC: NEPE 11:49 → NEDA 14:09 → NEPFCDU 16:30
PROVIDERS: ADMIT Internal Medicine; ATTEND Internal Medicine
DX: R07.89 Other chest pain (principal); E11.65 Type 2 diabetes mellitus with hyperglycemia; Z82.49 Family history of ischemic heart disease and other diseases of the circulatory system; Z79.82 Long term (current) use of aspirin; Z79.4 Long term (current) use of insulin; Z91.19 Patient's noncompliance with other medical treatment and regimen
CPT/HCPCS: 71010; 78452; 80048; 82550; 82948; 83036; 83735; 84484; 84702; 85025; 93005; 93017; 96374; 99285; A9502; G0378; J1815; J2785; J7030

== ENCOUNTER 2016-10-07 12:33 | Emergency (ER) | payer MEDICAID ==
[~2016-10-07] VITALS: Ht 167.6 cm; Wt 70.0 kg
[~2016-10-07 12:33] MED LIST: ALCO1PAD; BLOOD GLUCOSE M1 KIT; BLOOD GLUCOSE T1 TES; DIFL150T PO; FINGMIS SQ; INSULIN SYRINGE1 M10 SQ; LANTUS2P SQ
[2016-10-07 12:35] VITALS: BP 145/84; PULSE 110; RESP 20; TEMP 98.6; O2SAT 100
[2016-10-07] MEDS ORDERED: SODIUM CHLOR 0.9% 1000 ML INJ 1,000 ML IV ONE ×2 (13:15)
--- NOTE | 2016-10-07 13:16 | PD ---
HPI Chief Complaint: Diabetic Time Seen by Provider: 13:04 Travel History International Travel<30 days: No Contact w/Intl Traveler<30days: No Traveled to known affect area: No History of Present Illness HPI This is a 35-year-old female who presents to the emergency department with high blood sugar, associated with polydipsia, polyuria, and lightheadedness and dizziness, moderate severity, constant. She denies any abdominal pain or vomiting. She has a history of diabetes. She was recently put on insulin but her insurance wanted a $1500 co-pay and she couldn't afford it. She does have a primary care physician that is easy to get into and following her closely. Today her blood sugar was in the 400s which worried her. PFSH Past Medical History Diabetes: Yes Diminished Hearing: No ?: Not LMP: 3 WEEKS AGO : 5 Para: 5 Miscarriage: 0 : 0 Past Surgical History Section: Yes (X2) Gynecologic Surgery: Yes (CERVICAL CONE BIOPSY) Social History Alcohol Use: Yes (rare) Tobacco Use: No Substance Use: No Allergies-Medications (Allergen,Severity, Reaction): Coded Allergies: No Known Allergies (Unverified , 10/07/16) Reported Meds & Prescriptions Reported Meds & Active Scripts Active Diflucan (Fluconazole) 150 Mg Tab 150 Mg PO ONCE Insulin Syringe/0.5ML/30G 30G X 1/2" 0.5 ml (Insulin Syringe/Needle U-100) 1 Mis Mis 1 Box SQ BID Fingerstix Lancets (Lancets) 1 Mis Mis Box SQ TID Alcohol Prep Pads (Alcohol Swabs) 70 % Pad 1 Box .ROUTE TID Blood Glucose Test Strips Strips Strip 1 Box .ROUTE TID Blood Glucose Monitoring W/Device (Device) 1 Kit Kit 1 Kit .ROUTE TID Lantus Inj (Insulin Glargine) 1,000 Unit/10 Ml Vial 10 Units SQ HS Review of Systems Except as stated in HPI: all other systems reviewed are Neg Physical Exam Narrative GENERAL:Well appearing, no acute distress SKIN: Focused skin assessment warm and dry. HEAD: Atraumatic. Normocephalic. EYES: Pupils equal and round. No injection or drainage. ENT: Moist mucous membranes NECK: Trachea midline. CARDIOVASCULAR: Regular rate and rhythm. No murmur appreciated. RESPIRATORY: Clear to auscultation. Breath sounds equal bilaterally. GASTROINTESTINAL: Abdomen soft, non-tender, nondistended. MUSCULOSKELETAL: No obvious deformities. NEUROLOGICAL: Awake and alert. No obvious cranial nerve deficits. Moving all extremities. PSYCHIATRIC: Appropriate mood and affect; insight and judgment normal. Data Data Last Documented VS Vital Signs Date Time Temp Pulse Resp B/P Pulse Ox O2 Delivery O2 Flow Rate FiO2 10/07/16 12:35 98.6 110 20 145/84 100 Room Air Orders Complete Blood Count With Diff (10/07/16 13:12) Comprehensive Metabolic Panel (10/07/16 13:12) ^ Insert Iv (10/07/16 13:12) Sodium Chlor 0.9% 1000 Ml Inj (Ns 1000 M (10/07/16 13:15) Sodium Chlor 0.9% 1000 Ml Inj (Ns 1000 M (10/07/16 13:15) Insulin Human Regular Inj (Novolin R Inj (10/07/16 13:45) Labs Laboratory Tests Test 10/07/16 13:20 White Blood Count 5.8 TH/MM3 Red Blood Count 4.25 MIL/MM3 Hemoglobin 12.6 GM/DL Hematocrit 37.3 % Mean Corpuscular Volume 87.7 FL Mean Corpuscular Hemoglobin 29.6 PG Mean Corpuscular Hemoglobin 33.7 % Concent Red Cell Distribution Width 14.6 % Platelet Count 332 TH/MM3 Mean Platelet Volume 10.2 FL Neutrophils (%) (Auto) % Lymphocytes (%) (Auto) % Monocytes (%) (Auto) % Eosinophils (%) (Auto) % Basophils (%) (Auto) % Neutrophils # (Auto) TH/MM3 Lymphocytes # (Auto) TH/MM3 Monocytes # (Auto) TH/MM3 Eosinophils # (Auto) TH/MM3 Basophils # (Auto) TH/MM3 CBC Comment AUTO DIFF Differential Total Cells 100 Counted Neutrophils % (Manual) 57 % Lymphocytes % 34 % Monocytes % 6 % Eosinophils % 1 % Basophils % 2 % Neutrophils # (Manual) 3.3 TH/MM3 Differential Comment FINAL DIFF MANUAL Platelet Estimate NORMAL Platelet Morphology Comment NORMAL Red Cell Morphology Comment NORMAL Sodium Level 134 MEQ/L Potassium Level 5.4 MEQ/L Chloride Level 101 MEQ/L Carbon Dioxide Level 25.2 MEQ/L Anion Gap 8 MEQ/L Blood Urea Nitrogen 8 MG/DL Creatinine 0.83 MG/DL Estimat Glomerular Filtration 95 ML/MIN Rate Random Glucose 383 MG/DL Calcium Level 9.2 MG/DL Total Bilirubin 0.3 MG/DL Aspartate Amino Transf 27 U/L (AST/SGOT) Alanine Aminotransferase 20 U/L (ALT/SGPT) Alkaline Phosphatase 70 U/L Total Protein 7.9 GM/DL Albumin 3.6 GM/DL MDM Medical Decision Making Medical Screen Exam Complete: Yes Emergency Medical Condition: Yes Interpretation(s) afebrile, tachycardic, normotensive no leukocytosis electrolytes within normal limits hyperglycemic, potassium is elevated likely in the setting of hemolysis. Differential Diagnosis Hyperglycemia, electrolyte abnormality, dehydration Narrative Course This is a 35-year-old female who presents to the emergency department with high blood sugar in the setting of not being on medication. Labs are obtained which confirmed a blood sugar of 384. She has a potassium of 5.4 in the setting of hemolysis but normal kidney function. She was given a small dose of insulin and 2 L of IV fluid. Patient's blood sugar came down. I think she can be discharged home to follow up with her primary care physician. Diagnosis Primary Impression: Hyperglycemia Patient Instructions: General Instructions Additional Instructions: If you develop severe chest pain, shortness of breath, sweating, lightheadedness , dizziness or difficulty breathing return to the emergency department immediately. Followup with your primary care physician without fail regarding your diabetes medication. Med/Other Pt SpecificInfo: No Change to Meds Disposition: 01 DISCHARGE HOME Condition: Stable Megan Choi MD Oct 07, 2016 13:16
[2016-10-07] MEDS ORDERED: INSULIN HUMAN REGULAR 1,000 UNITS/10 ML VIAL IV PUSH ONE (13:45)
[2016-10-07 13:51] LABS: HEMATOCRIT 37.3 % (35.0-46.0); HEMO FLAGS AUTO DIFF; MEAN CELL VOLUME 87.7 FL (80.0-100.0); MEAN CORPUSCULAR HEMOGLOBIN 29.6 PG (27.0-34.0); MEAN CORPUSCULAR HGB CONC 33.7 % (32.0-36.0); PLATELET COUNT 332 TH/MM3 (150-450); RED BLOOD COUNT 4.25 MIL/MM3 (4.00-5.30); RED CELL DISTRIBUTION WIDTH 14.6 % (11.6-17.2); WHITE BLOOD COUNT 5.8 TH/MM3 (4.0-11.0)
[2016-10-07 14:04] LABS: ALKALINE PHOSPHATASE 70 U/L (45-117); TOTAL BILIRUBIN ADULT 0.3 MG/DL (0.2-1.0)
[2016-10-07 14:10] LABS: ALT (GPT) 20 U/L (10-53); ANION GAP 8 MEQ/L (5-15); AST (GOT) 27 U/L (15-37); BICARBONATE 25.2 MEQ/L (21.0-32.0); BLOOD UREA NITROGEN 8 MG/DL (7-18); CHLORIDE 101 MEQ/L (98-107); GLOMERULAR FILTRATION RATE 95 ML/MIN (>89); SODIUM (NA) 134 MEQ/L (136-145)
[2016-10-07 14:12] LABS: POTASSIUM 5.4 MEQ/L (3.5-5.1)
[2016-10-07 14:35] LABS: BASOPHILS 2 % (0-2); EOSINOPHILS 1 % (0-4); NEUTROPHIL # MANUAL DIFF 3.3 TH/MM3 (1.8-7.7); PLATELET ESTIMATE SMEAR NORMAL (NORMAL); PLATELET MORPHOLOGY NORMAL (NORMAL); POLYS (SEG NEUTROPHILS) 57 % (16-70); SCAN/DIFF FINAL DIFF MANUAL; WBC DIFF SAMPLE 100
== END 2016-10-07 15:50 | disposition home or self-care (01) ==
LOC: NEPD 12:33
DX: E11.65 Type 2 diabetes mellitus with hyperglycemia (principal); Z79.4 Long term (current) use of insulin
CPT/HCPCS: 80053; 85007; 85027; 96374; 99284; J1815; J7030

== ENCOUNTER 2017-03-07 09:48 | Emergency (ER) | payer MEDICAID ==
[~2017-03-07] VITALS: Ht 167.6 cm; Wt 75.0 kg
[2017-03-07 09:49] VITALS: BP 149/98; PULSE 113; RESP 16; TEMP 99.3; O2SAT 98
[2017-03-07 11:45] VITALS: BP 147/86; PULSE 84; RESP 16; O2SAT 100
[2017-03-07] MEDS ORDERED: SODIUM CHLORIDE 0.9% FLUSH 10 ML FLUSH IV FLUSH PRN (12:30)
[2017-03-07] MEDS ORDERED: MORPHINE SULFATE 4 MG/ML INJ IV PUSH ONE (12:30)
[2017-03-07] MEDS ORDERED: ONDANSETRON HCL 4 MG/2 ML VIAL IVP ONE (12:30)
[2017-03-07 13:23] LABS: BASOPHIL % 0.6 % (0.0-2.0); EOSINOPHIL # 0.1 TH/MM3 (0-0.4); EOSINOPHIL % 1.4 % (0.0-4.0); HEMATOCRIT 37.1 % (35.0-46.0); HEMO FLAGS DIFF FINAL; LYMPH % 32.1 % (9.0-44.0); LYMPHOCYTE # 1.6 TH/MM3 (1.0-4.8); MEAN CORPUSCULAR HEMOGLOBIN 29.4 PG (27.0-34.0); MONO % 6.8 % (0.0-8.0); NEUT % 59.1 % (16.0-70.0); PLATELET COUNT 280 TH/MM3 (150-450); RED BLOOD COUNT 4.17 MIL/MM3 (4.00-5.30); RED CELL DISTRIBUTION WIDTH 15.1 % (11.6-17.2); WHITE BLOOD COUNT 5.1 TH/MM3 (4.0-11.0)
[2017-03-07 13:35] LABS: ALT (GPT) 16 U/L (10-53); ANION GAP 10 MEQ/L (5-15); AST (GOT) 12 U/L (15-37); BICARBONATE 24.2 MEQ/L (21.0-32.0); BLOOD UREA NITROGEN 5 MG/DL (7-18); CHLORIDE 97 MEQ/L (98-107); GLOMERULAR FILTRATION RATE 94 ML/MIN (>89); POTASSIUM 4.6 MEQ/L (3.5-5.1); SODIUM (NA) 131 MEQ/L (136-145)
[2017-03-07 13:40] LABS: ALKALINE PHOSPHATASE 74 U/L (45-117); TOTAL BILIRUBIN ADULT 0.2 MG/DL (0.2-1.0)
[2017-03-07] MEDS ORDERED: IOHEXOL 350 MG/ML 10 ML VIAL (for RAD DIAG) IVCONTRAST ONE (13:43)
[2017-03-07 13:55] LABS: BACTERIA, URINE RARE /hpf; BLOOD, URINE TRACE (NEG); COMMENT (UR) CULT NOT INDICATED; CULTURE IF INDICATED CULT NOT INDICATED; GLUCOSE,URINE 1000 mg/dL (NEG); KETONE, URINE NEG (NEG); NITRITE,URINE NEG (NEG); SQUAMOUS EPITHELIAL CELL URINE 5 /hpf (0-5)
[2017-03-07 13:56] LABS: URINE COLOR STRAW (YELLW/STRAW)
--- NOTE | 2017-03-07 13:57 | PD ---
HPI . Abdominal pain Chief Complaint: GI Complaint Time Seen by Provider: 12:16 Travel History International Travel<30 days: No Contact w/Intl Traveler<30days: No Traveled to known affect area: No History of Present Illness HPI This patient presents with the chief complaint of right-sided abdominal pain for the last 2 weeks. She describes a sharp, nagging pain which she rates 5/ 10. Pain is exacerbated by lying on her side and improved by laying flat on her back. It is associated with nausea, vomiting and constipation. She also reports poor appetite. PFSH Past Medical History Diabetes: Yes Patient Takes Glucophage: No Diminished Hearing: No Influenza Vaccination: No ?: Not LMP: 02/23/17 : 5 Para: 5 Miscarriage: 0 : 0 Past Surgical History Section: Yes (X2) Gynecologic Surgery: Yes (CERVICAL CONE BIOPSY) Social History Alcohol Use: Yes (rare) Tobacco Use: No Substance Use: No Allergies-Medications (Allergen,Severity, Reaction): Coded Allergies: No Known Allergies (Unverified Adverse Reaction, Unknown, 03/07/17) Reported Meds & Prescriptions Reported Meds & Active Scripts Active Insulin Syringe/0.5ML/30G 30G X 1/2" 0.5 ml (Insulin Syringe/Needle U-100) 1 Mis Mis 1 Box SQ BID Fingerstix Lancets (Lancets) 1 Mis Mis Box SQ TID Blood Glucose Test Strips Strips Strip 1 Box .ROUTE TID Blood Glucose Monitoring W/Device (Device) 1 Kit Kit 1 Kit .ROUTE TID Lantus Inj (Insulin Glargine) 1,000 Unit/10 Ml Vial 10 Units SQ HS Review of Systems Except as stated in HPI: all other systems reviewed are Neg General / Constitutional: No: Fever, Chills Gastrointestinal: Positive: Nausea, Vomiting, Abdominal Pain, Constipation, Loss of Appetite, No: Diarrhea Genitourinary: No: Urgency, Frequency, Dysuria Physical Exam Narrative GENERAL: Awake and alert and in no acute distress. SKIN: warm/dry. HEAD: Normocephalic. Atraumatic. EYES: Pupils equal and round. No scleral icterus. No injection or drainage. ENT: No nasal bleeding or discharge. Mucous membranes pink and moist. NECK: Trachea midline. Full range of motion without pain.. CARDIOVASCULAR: Regular rate and rhythm. Heart sounds normal RESPIRATORY: No accessory muscle use. Clear to auscultation. Breath sounds equal bilaterally. GASTROINTESTINAL: Abdomen soft. Right sided abdominal tenderness. No guarding or rebound. Bowel sounds present. Nondistended. MUSCULOSKELETAL: No obvious deformities. NEUROLOGICAL: Awake and alert. No obvious cranial nerve deficits. Motor grossly within normal limits. Normal speech. PSYCHIATRIC: Appropriate mood and affect; insight and judgment normal. Data Data Last Documented VS Vital Signs Date Time Temp Pulse Resp B/P (MAP) Pulse Ox O2 Delivery O2 Flow Rate FiO2 03/07/17 11:45 84 16 147/86 (106) 100 Room Air 03/07/17 09:49 99.3 Orders Orders Complete Blood Count With Diff (03/07/17 12:26) Comprehensive Metabolic Panel (03/07/17 12:26) Urinalysis - C+S If Indicated (03/07/17 12:26) Ct Abd/Pel W Iv Contrast(Rout) (03/07/17 12:26) Iv Access Insert/Monitor (03/07/17 12:26) Morphine Inj (Morphine Inj) (03/07/17 12:30) Ondansetron Inj (Zofran Inj) (03/07/17 12:30) Sodium Chloride 0.9% Flush (Ns Flush) (03/07/17 12:30) Ed Urine Pregnancytest Poc (03/07/17 12:26) Iohexol 350 Inj (Omnipaque 350 Inj) (03/07/17 13:43) Labs Laboratory Tests Test 03/07/17 12:55 White Blood Count 5.1 TH/MM3 Red Blood Count 4.17 MIL/MM3 Hemoglobin 12.2 GM/DL Hematocrit 37.1 % Mean Corpuscular Volume 89.0 FL Mean Corpuscular Hemoglobin 29.4 PG Mean Corpuscular Hemoglobin Concent 33.0 % Red Cell Distribution Width 15.1 % Platelet Count 280 TH/MM3 Mean Platelet Volume 9.0 FL Neutrophils (%) (Auto) 59.1 % Lymphocytes (%) (Auto) 32.1 % Monocytes (%) (Auto) 6.8 % Eosinophils (%) (Auto) 1.4 % Basophils (%) (Auto) 0.6 % Neutrophils # (Auto) 3.0 TH/MM3 Lymphocytes # (Auto) 1.6 TH/MM3 Monocytes # (Auto) 0.3 TH/MM3 Eosinophils # (Auto) 0.1 TH/MM3 Basophils # (Auto) 0.0 TH/MM3 CBC Comment DIFF FINAL Differential Comment Urine Color STRAW Urine Turbidity HAZY Urine pH 5.0 Urine Specific [place] 1.032 Urine Protein NEG mg/dL Urine Glucose (UA) 1000 mg/dL Urine Ketones NEG mg/dL Urine Occult Blood TRACE Urine Nitrite NEG Urine Bilirubin NEG Urine Urobilinogen LESS THAN 2.0 MG/DL Urine Leukocyte Esterase SMALL Urine RBC 2 /hpf Urine WBC 3 /hpf Urine Squamous Epithelial Cells 5 /hpf Urine Bacteria RARE /hpf Microscopic Urinalysis Comment CULT NOT INDICATED Blood Urea Nitrogen 5 MG/DL Creatinine 0.83 MG/DL Random Glucose 392 MG/DL Total Protein 7.7 GM/DL Albumin 3.5 GM/DL Calcium Level 8.7 MG/DL Alkaline Phosphatase 74 U/L Aspartate Amino Transf (AST/SGOT) 12 U/L Alanine Aminotransferase (ALT/SGPT) 16 U/L Total Bilirubin 0.2 MG/DL Sodium Level 131 MEQ/L Potassium Level 4.6 MEQ/L Chloride Level 97 MEQ/L Carbon Dioxide Level 24.2 MEQ/L Anion Gap 10 MEQ/L Estimat Glomerular Filtration Rate 94 ML/MIN [facility] Medical Decision Making Medical Screen Exam Complete: Yes Emergency Medical Condition: Yes Differential Diagnosis Differential diagnosis of abdominal pain includes but is not limited to gastritis, pancreatitis, hepatitis, gastroenteritis, gallbladder disease, constipation, urinary retention, UTI, peptic ulcer disease, diverticulitis or appendicitis Narrative Course She presents with a 2 week history of right-sided abdominal pain. Appendicitis would be unlikely since she has had it for 2 weeks. CBC & BMP Diagram 03/07/17 12:55 Total Protein 7.7, Albumin 3.5, Calcium Level 8.7, Alkaline Phosphatase 74, Aspartate Amino Transf (AST/SGOT) 12 L, Alanine Aminotransferase (ALT/SGPT) 16, Total Bilirubin 0.2 UA>>small LE, rare bact CT: 1. Appendix appears normal. 2. Normal-appearing appendix. No acute inflammatory process. 3. Heterogeneous uterus with trace free fluid. The history, exam, diagnostic testing, and current condition do not suggest any significant pathology to warrant further testing, continued ED treatment, admission, or surgical evaluation at this point. No EMC was found. The patient 's condition is stable and appropriate for discharge. The patient will be educated regarding the importance of treating her diabetes. Diagnosis Primary Impression: Abdominal pain Qualified Codes: R10.31 - Right lower quadrant pain Additional Impression: Diabetes mellitus Qualified Codes: E11.9 - Type 2 diabetes mellitus without complications Referrals: [facility] Patient Instructions: Abdominal Pain (ED), General Instructions, Type 2 Diabetes in Adults (DC) Disposition: 01 DISCHARGE HOME Condition: Stable Zee Meneses MD Mar 07, 2017 13:57
--- NOTE | 2017-03-07 14:37 | RADRPT ---
EXAM DATE/TIME: 03/07/2017 13:36 [facility] COMPARISON: No previous studies available for comparison. INDICATIONS : Nausea, vomiting and right lower abdominal pain for two weeks. IV CONTRAST: 96 cc Omnipaque 350 (iohexol) IV ORAL CONTRAST: No oral contrast ingested. RADIATION DOSE: CTDIvol (mGy) MEDICAL HISTORY : None SURGICAL HISTORY : section. ENCOUNTER: Initial ACUITY: 1 day PAIN SCALE: 0/10 LOCATION: Right lower quadrant TECHNIQUE: Volumetric scanning of the abdomen and pelvis was performed. Using automated exposure control and ad justment of the mA and/or kV according to patient size, radiation dose was kept as low as reasonably achievable to obtain optimal diagnostic quality images. DICOM format image data is available electro nically for review and comparison. FINDINGS: LOWER LUNGS: The visualized lower lungs are clear. LIVER: Decreased attenuation without lesion. There is no dilation of the biliary tree. No calcified gallst ones. SPLEEN: Normal size without lesion. PANCREAS: Within normal limits. KIDNEYS: Normal in size and shape. There is no mass, stone or hydronephrosis. ADRENAL GLANDS: Within normal limits. VASCULAR: There is no aortic aneurysm. BOWEL/MESENTERY: The stomach, small bowel, and colon demonstrate no acute abnormality. There is no free intraperitone al air or fluid. Normal-appearing appendix. ABDOMINAL WALL: Within normal limits. RETROPERITONEUM: There is no lymphadenopathy. BLADDER: No wall thickening or mass. REPRODUCTIVE: Heterogeneous appearing uterus with trace free fluid.. INGUINAL: There is no lymphadenopathy or hernia. MUSCULOSKELETAL: Levoscoliosis. CONCLUSION: 1. Appendix appears normal. 2. Normal-appearing appendix. No acute inflammatory process. 3. Heterogeneous uterus with trace free fluid. Don Alvarez MD on March 07, 2017 at 14:21 Board Certified Radiologist. This report was verified electronically.
== END 2017-03-07 14:56 | disposition home or self-care (01) ==
LOC: NEPD 09:48
DX: R10.31 Right lower quadrant pain (principal); E11.9 Type 2 diabetes mellitus without complications; K59.00 Constipation, unspecified; Z79.4 Long term (current) use of insulin
CPT/HCPCS: 74177; 80053; 81001; 84703; 85025; 96374; 96375; 99285; J2270; J2405; Q9967

== ENCOUNTER 2017-03-12 12:46 | Emergency (ER) | payer MEDICAID ==
[~2017-03-12] VITALS: Ht 167.6 cm; Wt 75.0 kg
[~2017-03-12 12:46] MED LIST changes: -ALCO1PAD; -DIFL150T PO
[2017-03-12 12:49] VITALS: BP 132/94; PULSE 95; RESP 14; TEMP 98.5; O2SAT 100
[2017-03-12] MEDS ORDERED: IBUP1TAB7 PO (13:01)
[2017-03-12] MEDS ORDERED: AMOX500C PO (13:01)
[2017-03-12] MEDS ORDERED: PERI0.126 SWISH-SPIT (13:02)
--- NOTE | 2017-03-12 13:04 | PD ---
HPI Chief Complaint: Oral / Dental Pain or Problem Time Seen by Provider: 12:54 Travel History International Travel<30 days: No Contact w/Intl Traveler<30days: No Traveled to known affect area: No History of Present Illness HPI 36-year-old female presents to emergency department complaint of right upper broken tooth from eating ice yesterday and is concerned of a piece of her gum that is loose. Denies fever, vomiting. Rates pain 5/10. Describes it as a throbbing sensation. Has not taken any medications or tried any treatments to alleviate her symptoms. No known relieving or aggravating factors. Symptoms are mild in severity. Has no other medical complaints. No known allergies. No other modifying factors or associated signs and symptoms. PFSH Past Medical History Diabetes: Yes Diminished Hearing: No ?: Unknown : 5 Para: 5 Miscarriage: 0 : 0 Past Surgical History Section: Yes (X2) Gynecologic Surgery: Yes (CERVICAL CONE BIOPSY) Social History Alcohol Use: Yes (rare) Tobacco Use: No Substance Use: No Allergies-Medications (Allergen,Severity, Reaction): Coded Allergies: No Known Allergies (Unverified Adverse Reaction, Unknown, 03/07/17) Reported Meds & Prescriptions Reported Meds & Active Scripts Active Peridex Liq (Chlorhexidine Gluconate (Mouth) Liq) 0.12% Soln 15 Ml SWISH-SPIT BID 10 Days Ibuprofen 800 Mg Tab 800 Mg PO Q6HR PRN Amoxicillin 500 Mg Cap 500 Mg PO BID 10 Days Insulin Syringe/0.5ML/30G 30G X 1/2" 0.5 ml (Insulin Syringe/Needle U-100) 1 Mis Mis 1 Box SQ BID Fingerstix Lancets (Lancets) 1 Mis Mis Box SQ TID Blood Glucose Test Strips Strips Strip 1 Box .ROUTE TID Blood Glucose Monitoring W/Device (Device) 1 Kit Kit 1 Kit .ROUTE TID Lantus Inj (Insulin Glargine) 1,000 Unit/10 Ml Vial 10 Units SQ HS Review of Systems Except as stated in HPI: all other systems reviewed are Neg Physical Exam Narrative GENERAL: Well-nourished, well-developed black female patient, in no acute distress; afebrile, nontoxic-appearing SKIN: Warm and dry. HEAD: Atraumatic. Normocephalic. No facial edema, erythema, tenderness on palpation. No lymphadenopathy. EYES: Pupils equal and round. No scleral icterus. No injection or drainage. ENT: Mucosa pink and moist. No erythema or exudates. No uvular edema. No uvular , palatal, or tonsillar deviation. Airway patent. EARS: Bilateral pinnae and external canals appear within normal limits. Bilateral tympanic membranes without erythema, dullness or perforation. MOUTH: Mucous membranes moist, no lesions, tongue and gums appear normal. Tooth #5 broken down to the gumline; a small piece of flesh is noted; area without edema, drainage; with tenderness on palpation. Surrounding gingiva is without erythema, edema, drainage. No obvious abscess noted. NECK: Trachea midline. No lymphadenopathy. CARDIOVASCULAR: Regular rate. RESPIRATORY: No accessory muscle use. GASTROINTESTINAL: Rounded. MUSCULOSKELETAL: No obvious deformities. No clubbing. No cyanosis. No edema. NEUROLOGICAL: Awake and alert. Oriented 3. No obvious cranial nerve deficits. Motor grossly within normal limits. Normal speech. PSYCHIATRIC: Appropriate mood and affect; insight and judgment normal. Data Data Last Documented VS Vital Signs Date Time Temp Pulse Resp B/P (MAP) Pulse Ox O2 Delivery O2 Flow Rate FiO2 03/12/17 12:49 98.5 95 14 132/94 (107) 100 Orders Orders Ed Discharge Order (03/12/17 13:04) MDM Medical Decision Making Medical Screen Exam Complete: Yes Emergency Medical Condition: Yes Medical Record Reviewed: Yes Differential Diagnosis broken tooth, dentalgia, dental trauma Narrative Course 36-year-old female with a broken tooth to tooth #5. No facial edema, erythema. I will start the patient on antibiotics prophylactically to avoid infection. Instructed patient to follow up with dentistry emergency dental information sheet provided for follow-up. Amoxicillin and ibuprofen prescribed for home. Instructed patient to follow up with primary care provider. Patient verbalizes understanding and agreement with treatment plan. Patient is medically cleared and stable for discharge. Discussed reasons to return to the emergency department. Patient agrees with treatment plan. The patients vital signs are stable and the patient is stable for outpatient follow-up and treatment. Patient discharged home, stable and in no acute distress. Diagnosis Primary Impression: Broken tooth Qualified Codes: S02.5XXA - Fracture of tooth (traumatic), initial encounter for closed fracture Referrals: Dentist Patient Instructions: Acute Dental Trauma (ED), General Instructions Additional Instructions: Complete full course of antibiotics Ibuprofen or Tylenol as directed and as needed to reduce pain and inflammation Use Peridex as directed for oral hygiene Warm or cool compresses to the affected area Follow-up with dentist Follow-up with primary care provider Return to emergency department immediately with worsening of symptoms Med/Other Pt SpecificInfo: Prescription(s) given Scripts Chlorhexidine Gluconate (Mouth) Liq (Peridex Liq) 0.12% Soln 15 ML SWISH-SPIT BID for 10 Days, #300 ML 0 Refills Prov: Chandrika Sousa 03/12/17 Ibuprofen (Ibuprofen) 800 Mg Tab 800 MG PO Q6HR Y for PAIN, #30 TAB 0 Refills Prov: Chandrika Sousa 03/12/17 Amoxicillin (Amoxicillin) 500 Mg Cap 500 MG PO BID for Infection for 10 Days, #20 CAP 0 Refills Prov: Chandrika Sousa 03/12/17 Disposition: 01 DISCHARGE HOME Condition: Stable Chandrika Sousa Mar 12, 2017 13:04
== END 2017-03-12 13:54 | disposition home or self-care (01) ==
LOC: NEPD 12:46
DX: S02.5XXA Fracture of tooth (traumatic), initial encounter for closed fracture (principal); E11.9 Type 2 diabetes mellitus without complications; W22.8XXA Striking against or struck by other objects, initial encounter; Z79.4 Long term (current) use of insulin; Z79.899 Other long term (current) drug therapy
CPT/HCPCS: 99283